=== PATIENT | female | born 1970 | race Caucasian/White ===

== ENCOUNTER 2017-01-15 13:50 | Emergency (ER) | payer OTHER ==
[~2017-01-15 13:50] MED LIST: ACET325T9 PO; IBUP800T19 PO; LEVO25TA55 PO; METF10002 PO; SULF1TAB24 PO
[2017-01-15] MEDS ORDERED: IV NORMAL SALINE 1,000ML 1,000 ML IV SCH (14:28)
[2017-01-15 14:49] LABS: BASO % 0 % (0-3); EOS # 0.1 x10^3/uL (0.0-0.7); EOS % 1 % (0-3); HEMATOCRIT 39.1 % (36.0-47.0); HEMOGLOBIN 13.4 g/dL (12.0-15.5); LYMPH # 1.9 x10^3/uL (1.0-4.8); LYMPH % 24 % (24-48); MEAN CORPUSCULAR HEMOGLOBIN 32 pg (25-35); MEAN CORPUSCULAR HGB CONC 34 g/dL (31-37); MEAN CORPUSCULAR VOLUME 92 fL (79-100); MONO # 0.4 x10^3/uL (0.0-1.1); MONO % 5 % (0-9); NEUT # 5.5 x10^3uL (1.8-7.7); NEUT % 69 % (31-73); PLATELET COUNT 291 x10^3/uL (140-400); RED BLOOD COUNT 4.23 x10^6/uL (3.50-5.40); RED CELL DISTRIBUTION WIDTH 12.4 % (11.5-14.5)
--- NOTE | 2017-01-15 14:59 | EKG ---
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
[2017-01-15 15:30] LABS: CLARITY,URINE CLEAR; COLOR,URINE YELLOW; GLUCOSE,URINE >=1000 mg/dL (NEG)
[2017-01-15 15:31] LABS: BILIRUBIN,URINE NEG (NEG); NITRITE,URINE NEG (NEG); UROBILINOGEN,URINE 0.2 mg/dL (0.2 mg/dL)
[2017-01-15 15:32] LABS: BACTERIA,URINE 0 /HPF (0-FEW); WBC,URINE 0 /HPF (0-4)
[2017-01-15 15:38] LABS: ALBUMIN 3.2 g/dL (3.4-5.0); ALBUMIN/GLOBULIN RATIO 0.8 (1.0-1.7); CALCIUM 8.7 mg/dL (8.5-10.1); CREATININE 0.7 mg/dL (0.6-1.0); GFR 89.7; POTASSIUM 4.1 mmol/L (3.5-5.1); TOTAL BILIRUBIN 0.4 mg/dL (0.2-1.0)
--- NOTE | 2017-01-15 15:44 | PHYS DOC ---
Past History Past Medical History: Diabetes, Hypothyroid, Other Past Surgical History: Alcohol Use: None Drug Use: None Adult General Chief Complaint Chief Complaint: DIZZY/LIGHT HEADED HPI HPI Patient is a 47-year-old female brought to the ED by family member in private vehicle. Patient was at the store when she began to feel dizzy. She felt dizzy and lightheaded. She thought her blood sugar was probably high. Patient has history of diabetes. Her blood sugar has been running "very high". She has had some trouble with reactions to insulin. She had been on metformin, was switched to glipizide, was switched back to metformin. No GI complaints. Patient states "since I got here" she has had some heavy feeling in her chest and also a pain between her shoulder blades. She did not have it earlier, did not have it before she arrived at the ED. She has not had that back pain pain before. She has had heaviness in her chest at times. She has been seen before for atypical chest pain. PCP none. Patient had a PCP who left the practice. Patient states the doctors who are in the practice "she doesn't really get along with". Patient states she has been in the hospital before to control her diabetes, they give her insulin in the hospital but she is afraid to take it at home because it causes "heart palpitations". Patient has a history of HSP and had wounds on her lower legs which ended up causing scars. Review of Systems Review of Systems Constitutional: Denies fever or chills [] Eyes: Denies change in visual acuity, redness, or eye pain [] HENT: Denies nasal congestion or sore throat [] Respiratory: Denies cough or shortness of breath [] Cardiovascular: As in history of present illness GI: Denies abdominal pain, nausea, vomiting, bloody stools or diarrhea [] : Denies dysuria or hematuria [] Musculoskeletal: As in history of present illness Integument: Denies rash or skin lesions [] Neurologic: Denies headache, focal weakness or sensory changes [] Current Medications Current Medications Current Medications Medications (Trade) Dose Ordered Sig/Piotr Start Time Stop Time Status Last Admin Dose Admin Sodium Chloride 1,000 ml @ 1,000 mls/hr Q1H 01/15/17 14:28 01/15/17 15:27 DC 01/15/17 14:15 1,000 MLS/HR Allergies Allergies Allergies Coded Allergies Type Severity Reaction Last Updated Verified banana Allergy Intermediate 02/14/15 Yes influenza virus vacc,specific Allergy Intermediate 02/14/15 Yes I S O L A T I O N *CONTACT* Allergy Unknown 02/14/15 Yes Physical Exam Physical Exam Constitutional: Well developed, well nourished, no acute distress, non-toxic appearance. Alert, mentating normally, nondiaphoretic. HENT: Normocephalic, atraumatic, bilateral external ears normal, nose normal. [] Eyes: conjunctiva normal, no discharge. [] Neck: Normal range of motion, no stridor. [] Cardiovascular:Heart rate regular rhythm, no murmur [] Lungs & Thorax: Bilateral breath sounds clear to auscultation [] Abdomen: Bowel sounds normal, soft, no tenderness, no masses, no pulsatile masses. [] Skin: Warm, dry, no erythema, no rash. Lower leg hyperpigmented areas secondary to old cars, nothing acute Extremities: No tenderness, no cyanosis, no clubbing, ROM intact, no edema. [] Neurologic: Alert and oriented X 3, normal motor function, normal sensory function, no focal deficits noted. [] Current Patient Data Vital Signs Vital Signs Date Time Temp Pulse Resp B/P (MAP) Pulse Ox O2 Delivery O2 Flow Rate FiO2 01/15/17 13:55 98.5 95 16 98 Room Air Lab Results Laboratory Tests Test 01/15/17 14:30 01/15/17 14:45 White Blood Count 8.0 x10^3/uL (4.0-11.0) Red Blood Count 4.23 x10^6/uL (3.50-5.40) Hemoglobin 13.4 g/dL (12.0-15.5) Hematocrit 39.1 % (36.0-47.0) Mean Corpuscular Volume 92 fL (79-100) Mean Corpuscular Hemoglobin 32 pg (25-35) Mean Corpuscular Hemoglobin Concent 34 g/dL (31-37) Red Cell Distribution Width 12.4 % (11.5-14.5) Platelet Count 291 x10^3/uL (140-400) Neutrophils (%) (Auto) 69 % (31-73) Lymphocytes (%) (Auto) 24 % (24-48) Monocytes (%) (Auto) 5 % (0-9) Eosinophils (%) (Auto) 1 % (0-3) Basophils (%) (Auto) 0 % (0-3) Neutrophils # (Auto) 5.5 x10^3uL (1.8-7.7) Lymphocytes # (Auto) 1.9 x10^3/uL (1.0-4.8) Monocytes # (Auto) 0.4 x10^3/uL (0.0-1.1) Eosinophils # (Auto) 0.1 x10^3/uL (0.0-0.7) Basophils # (Auto) 0.0 x10^3/uL (0.0-0.2) Urine Collection Type Void Urine Color Yellow Urine Clarity Clear Urine pH 5.0 Urine Specific [place] <=1.005 Urine Protein Neg (NEG-TRACE) Urine Glucose (UA) >=1000 mg/dL (NEG) Urine Ketones (Stick) 40 mg/dL (NEG) Urine Blood Mod (NEG) Urine Nitrite Neg (NEG) Urine Bilirubin Neg (NEG) Urine Urobilinogen Dipstick 0.2 mg/dL (0.2 mg/dL) Urine Leukocyte Esterase Neg (NEG) Urine RBC 3-5 /HPF (0-2) Urine WBC 0 /HPF (0-4) Urine Squamous Epithelial Cells None /LPF Urine Bacteria 0 /HPF (0-FEW) EKG EKG 12-lead EKG read by me. Sinus rhythm. Heart rate 85. There are no acute ST or T wave changes indicative of ischemia or infarction. No STEMI. 1419 [] Radiology/Procedures Radiology/Procedures [] Course & Med Decision Making Course & Med Decision Making Pertinent Labs and Imaging studies reviewed. (See chart for details) 47-year-old female who has a long history of diabetes who has not been having well controlled blood sugars presents with dizziness, lightheadedness. It's quite possible that she is dehydrated given her elevated blood sugars. After the patient arrived in the ED and was resting on the cart, she did mention some chest heaviness and pain between her shoulder blades in her upper back which was self-limited and she had a normal EKG while having this discomfort. I feel this discomfort is atypical. Patient was given a liter of IV normal saline in the ED. Labs consistent with the patient's history that her diabetes is out of control with glucose over 400 , urinalysis with glucose and very dilute but minimal ketones. Other labs unremarkable with no acidosis. Patient remained stable in the emergency department. I encouraged her to find a primary care doctor to help her manage diabetes. She is taking metformin only 500 mg a day, I encouraged her to increase that as tolerated to 3 times a day with meals. I offered her admission to the hospital for diabetes control but she stated "they can get it under control when I'm in the hospital, but then I go home and I don't take my insulin and it's out of control again". [] Dragon Disclaimer Dragon Disclaimer This chart was dictated in whole or in part using Voice Recognition software in a busy, high-work load, and often noisy Emergency Department environment. It may contain unintended and wholly unrecognized errors or omissions. Departure Departure: Impression: Primary Impression: Diabetes mellitus out of control Additional Impressions: Dehydration Lightheadedness Atypical chest pain Disposition: HOME, SELF-CARE Condition: STABLE Referrals: PCP,NO (PCP) Patient Instructions: Type 2 Diabetes Mellitus, Adult, [id number] Additional Instructions: As we discussed, it's very important to get a primary care physician that you can follow-up with to help manage your diabetes. Go to the website or call the phone number on your insurance card to try to find someone. As we discussed, increase your metformin dosage to 500 mg 3 times a day with meals. You will need other therapy than metformin but we should try to maximize your metformin as well. Problem Qualifiers MARIANNA HOOKS MD Jan 15, 2017 15:44
[2017-01-15 16:22] VITALS: BP 145/80
== END 2017-01-15 16:25 | disposition home or self-care (01) ==
LOC: ER 13:50
DX: E11.65 Type 2 diabetes mellitus with hyperglycemia (principal); E86.0 Dehydration; R07.89 Other chest pain; E03.9 Hypothyroidism, unspecified; Z79.4 Long term (current) use of insulin; Z91.041 Radiographic dye allergy status; Z88.7 Allergy status to serum and vaccine; Z91.018 Allergy to other foods
CPT/HCPCS: 36415; 80053; 81001; 82553; 84484; 85027; 93005; 96360; 99285-25; J7030

== ENCOUNTER 2017-08-16 20:00 | Emergency (ER) | payer OTHER ==
--- NOTE | 2017-08-16 20:27 | PHYS DOC ---
Past History Past Medical History: Diabetes, Hypothyroid, Other Past Surgical History: Alcohol Use: None Drug Use: None Adult General Chief Complaint Chief Complaint: GENERALIZED BODY ACHES HPI HPI Patient is a 47 year old female who presents with complaints of pain similar to previous episodes of fibromyalgia pain. Patient has been taking her by mouth medications but is not able to control the pain. Patient denies any fevers, chills, rashes, falls, vomiting, diarrhea. Patient's fibromyalgia is being managed by primary care provider, patient has not seen a candles pourer or landscape painter Review of Systems Review of Systems Constitutional: Denies fever or chills [] Eyes: Denies change in visual acuity, redness, or eye pain [] HENT: Denies nasal congestion or sore throat [] Respiratory: Denies cough or shortness of breath [] Cardiovascular: No chest pain GI: Denies abdominal pain, nausea, vomiting, bloody stools or diarrhea [] : Denies dysuria or hematuria [] Musculoskeletal: Diffuse pain "everywhere" Integument: Denies new rash or skin lesions [] Neurologic: Denies headache, focal weakness or sensory changes [] All other systems were reviewed and found to be within normal limits, except as documented in this note. Current Medications Current Medications Current Medications Medications (Trade) Dose Ordered Sig/Piotr Start Time Stop Time Status Last Admin Dose Admin Ketorolac Tromethamine (Toradol) 30 mg 1X ONCE 08/16/17 20:30 08/16/17 20:31 Allergies Allergies Allergies Coded Allergies Type Severity Reaction Last Updated Verified banana Allergy Intermediate 02/14/15 Yes influenza virus vacc,specific Allergy Intermediate 02/14/15 Yes I S O L A T I O N *CONTACT* Allergy Unknown 02/14/15 Yes Physical Exam Physical Exam Constitutional: Well developed, well nourished, mild distress, non-toxic appearance. [] HENT: Normocephalic, atraumatic, bilateral external ears normal, oropharynx dry , no oral exudates, nose normal. [] Eyes: EOMI, conjunctiva normal, no discharge. [] Neck: Normal range of motion, no tenderness, supple, no stridor. [] Cardiovascular:Heart rate regular rhythm, no murmur normal perfusion Lungs & Thorax: Bilateral breath sounds clear to auscultation no tachypnea Abdomen: Bowel sounds normal, soft, mild diffuse tenderness, no masses, no pulsatile masses. [] Skin: Warm, dry, no erythema, chronic rash lower extremities. [] Back: Normal range of motion. [] Extremities: No tenderness, no cyanosis, no DVT, ROM intact, no edema. [] Neurologic: Alert and oriented X 3, normal motor function,, no focal deficits noted. [] Psychologic: Affect normal, judgement normal, mood mild he anxious. [] EKG EKG [] Radiology/Procedures Radiology/Procedures [] Course & Med Decision Making Course & Med Decision Making Pertinent Labs and Imaging studies reviewed. (See chart for details) 2144 pt now more relaxed and calm after medications. Pain controlled. I have advised the patient to follow with her primary care doctor in the morning and discuss possible need for referral to candles pourer and or pain inventory control analyst [] Dragon Disclaimer Dragon Disclaimer This electronic medical record was generated, in whole or in part, using a voice recognition dictation system. Departure Departure: Impression: Primary Impression: Fibromyalgia Additional Impressions: Chronic pain Hyperglycemia Dehydration Disposition: 01 HOME, SELF-CARE Condition: IMPROVED Referrals: LAMAR JONES DO (PCP) Please follow-up with your doctor in 1 day for recheck and reevaluation, please discuss with your doctor possible need for referral to rheumatology or pain inventory control analyst Patient Instructions: Chronic Pain Management, Dehydration, Adult, Crlk-no-Eava , Fibromyalgia, Hyperglycemia, [id number] Additional Instructions: you are given 2 tabs tramadol for pain tonight. Please take every 6 hours as needed. Problem Qualifiers Nico LIVINGSTON MD Aug 16, 2017 20:27
[2017-08-16] MEDS ORDERED: KETOROLAC 30 MG/ML VIAL. IV ONE (20:30)
[2017-08-16 20:35] VITALS: BP 157/75
[2017-08-16] MEDS ORDERED: ORPHENADRINE CITRATE 60 MG/2 ML VIAL. IM ONE (20:45)
[2017-08-16 20:47] LABS: BASO # 0.1 x10^3/uL (0.0-0.2); BASO % 1 % (0-3); EOS # 0.1 x10^3/uL (0.0-0.7); EOS % 2 % (0-3); HEMOGLOBIN 14.5 g/dL (12.0-15.5); LYMPH # 2.3 x10^3/uL (1.0-4.8); LYMPH % 28 % (24-48); MEAN CORPUSCULAR HEMOGLOBIN 32 pg (25-35); MEAN CORPUSCULAR HGB CONC 35 g/dL (31-37); MEAN CORPUSCULAR VOLUME 92 fL (79-100); MONO # 0.4 x10^3/uL (0.0-1.1); MONO % 5 % (0-9); NEUT # 5.3 x10^3uL (1.8-7.7); NEUT % 64 % (31-73); PLATELET COUNT 341 x10^3/uL (140-400); RED BLOOD COUNT 4.47 x10^6/uL (3.50-5.40); RED CELL DISTRIBUTION WIDTH 12.7 % (11.5-14.5); WHITE BLOOD COUNT 8.2 x10^3/uL (4.0-11.0)
[2017-08-16 20:58] LABS: AMPHETAMINE/METHAMPHETAMINE NEG (NEG); BARBITURATES NEG (NEG); BENZODIAZEPINES NEG (NEG); CANNABINOIDS NEG (NEG); COCAINE NEG (NEG); METHADONE NEG (NEG); OPIATES NEG (NEG); PHENCYCLIDINE NEG (NEG)
[2017-08-16 21:01] LABS: ALBUMIN 3.5 g/dL (3.4-5.0); CALCIUM 8.7 mg/dL (8.5-10.1); CREATININE 0.6 mg/dL (0.6-1.0); GFR 107.2; TOTAL BILIRUBIN 0.5 mg/dL (0.2-1.0); TOTAL PROTEIN 6.9 g/dL (6.4-8.2)
[2017-08-16] MEDS ORDERED: IV NORMAL SALINE 500ML 500 ML IV ONE (21:15)
[2017-08-16] MEDS ORDERED: traMADol 50 MG TABLET ONE (21:36)
[2017-08-16] MEDS ORDERED: diphenhydrAMINE 50 MG/ML VIAL ONE (21:36)
[2017-08-16] MEDS ORDERED: START PACK - traMADol 1 STARTPACK TABLET PO ONE ×2 (21:44→22:00)
[2017-08-16] MEDS ORDERED: traMADol 50 MG TABLET PO ONE (21:45)
[2017-08-16] MEDS ORDERED: diphenhydrAMINE 50 MG/ML VIAL IVP ONE (21:45)
== END 2017-08-16 22:00 | disposition home or self-care (01) ==
LOC: ER 20:00
DX: M79.7 Fibromyalgia (principal); G89.29 Other chronic pain; E86.0 Dehydration; E11.65 Type 2 diabetes mellitus with hyperglycemia; E03.9 Hypothyroidism, unspecified; Z91.041 Radiographic dye allergy status; Z88.7 Allergy status to serum and vaccine; Z91.018 Allergy to other foods
CPT/HCPCS: 36415; 80053; 80307; 81025; 82550; 85025; 96361; 96372; 96374; 96375; 99284; J1200; J1885; J2360; J7040; G0479

== ENCOUNTER 2017-11-15 02:47 | Observation (INO) | payer OTHER ==
[~2017-11-15] VITALS: Ht 172.7 cm; Wt 75.3 kg
[~2017-11-15 02:47] MED LIST changes: -METF10002 PO; +METF10003 PO
--- NOTE | 2017-11-15 03:06 | PHYS DOC ---
Past History Past Medical History: Diabetes, Fibromyalgia, Hypothyroid Past Surgical History: Alcohol Use: None Drug Use: None Adult General HPI HPI 47-year-old female with a history of high cholesterol and type 2 diabetes with no known cardiac history now presents to the emergency department after awakening with an episode of palpitations and experiencing near syncope with shortness of breath and nausea and vomiting. Patient was at her baseline last night. She awoke just prior to arrival with the aforementioned symptoms. Patient states she does not have a chronic anxiety problem. She did experience a single episode of anxiety previously but she has not felt stressed or anxious lately. She denies any chest pain. No pleuritic pain. Patient is now asymptomatic. She's never had a cardiac evaluation or stress test. Patient has never seen a side laster tack. Review of Systems Review of Systems Constitutional: Denies fever or chills [] Eyes: Denies change in visual acuity, redness, or eye pain [] HENT: Denies nasal congestion or sore throat [] Respiratory: Denies cough or shortness of breath [] Cardiovascular: No additional information not addressed in HPI [] GI: Denies abdominal pain, nausea, vomiting, bloody stools or diarrhea [] : Denies dysuria or hematuria [] Musculoskeletal: Denies back pain or joint pain [] Integument: Denies rash or skin lesions [] Neurologic: Denies headache, focal weakness or sensory changes [] Endocrine: Denies polyuria or polydipsia [] All other systems were reviewed and found to be within normal limits, except as documented in this note. Allergies Allergies Allergies Coded Allergies Type Severity Reaction Last Updated Verified banana Allergy Intermediate 08/16/17 Yes influenza virus vaccine, specific Allergy Intermediate 08/16/17 Yes I S O L A T I O N *CONTACT* Allergy Unknown 08/16/17 Yes Physical Exam Physical Exam Constitutional: Well developed, well nourished, no acute distress, non-toxic appearance. [] HENT: Normocephalic, atraumatic, bilateral external ears normal, oropharynx moist, no oral exudates, nose normal. [] Eyes: PERRLA, EOMI, conjunctiva normal, no discharge. [] Neck: Normal range of motion, no tenderness, supple, no stridor. [] Cardiovascular:Heart rate regular rhythm, no murmur [] Lungs & Thorax: Bilateral breath sounds clear to auscultation [] Abdomen: Bowel sounds normal, soft, no tenderness, no masses, no pulsatile masses. [] Skin: Warm, dry, no erythema, no rash. [] Back: No tenderness, no CVA tenderness. [] Extremities: No tenderness, no cyanosis, no clubbing, ROM intact, no edema. [] Neurologic: Alert and oriented X 3, normal motor function, normal sensory function, no focal deficits noted. [] Psychologic: Affect normal, judgement normal, mood normal. [] EKG EKG EKG with normal sinus rhythm at 103 left axis deviation left anterior hemiblock Q waves and nonspecific ST and T-wave findings. No STEMI interpreted by me[] Radiology/Procedures Radiology/Procedures Chest x-ray no acute disease no infiltrate or effusion interpreted by me[] Course & Med Decision Making Course & Med Decision Making Pertinent Labs and Imaging studies reviewed. (See chart for details) Patient status post episode of near syncope with shortness of breath and palpitations.chest x-ray and laboratory workup unremarkable except for mild hyperglycemia with glucose 286. Insulin dose given. EKG abnormal with Q waves however troponin negative. Given cannot rule out arrhythmia as etiology for this episode, will admit for telemetry monitoring and cardiac workup. This will be discussed with Dr. Bassett hospitalist on-call regarding inpatient admission to a telemetry bed with cardiology consultation [] Dragon Disclaimer Dragon Disclaimer This electronic medical record was generated, in whole or in part, using a voice recognition dictation system. Departure Departure: Impression: Primary Impression: Near syncope Additional Impressions: Palpitations Hyperglycemia Nausea and vomiting Disposition: ADMITTED INPATIENT Admitting Physician: Cheri Bassett Condition: STABLE Referrals: LAMAR JONES DO (PCP) Problem Qualifiers MELLO JOSEPH MD November 15, 2017 03:06
[2017-11-15] MEDS ORDERED: ALPRAZolam 0.25 MG TABLET ONE (03:19)
[2017-11-15] MEDS ORDERED: ASPIRIN 81 MG TAB.CHEW PO ONE (03:45)
[2017-11-15] MEDS ORDERED: ALPRAZolam 0.25 MG TABLET PO ONE (03:45)
[2017-11-15 03:48] LABS: BASO # 0.1 x10^3/uL (0.0-0.2); BASO % 1 % (0-3); EOS # 0.1 x10^3/uL (0.0-0.7); EOS % 1 % (0-3); HEMATOCRIT 39.3 % (36.0-47.0); HEMOGLOBIN 13.7 g/dL (12.0-15.5); LYMPH # 2.1 x10^3/uL (1.0-4.8); LYMPH % 20 % (24-48); MEAN CORPUSCULAR HEMOGLOBIN 31 pg (25-35); MEAN CORPUSCULAR HGB CONC 35 g/dL (31-37); MEAN CORPUSCULAR VOLUME 90 fL (79-100); MONO # 0.4 x10^3/uL (0.0-1.1); MONO % 4 % (0-9); NEUT # 7.7 x10^3uL (1.8-7.7); NEUT % 75 % (31-73); PLATELET COUNT 278 x10^3/uL (140-400); RED BLOOD COUNT 4.38 x10^6/uL (3.50-5.40); RED CELL DISTRIBUTION WIDTH 12.1 % (11.5-14.5); WHITE BLOOD COUNT 10.4 x10^3/uL (4.0-11.0)
[2017-11-15 03:57] LABS: CALCIUM 8.8 mg/dL (8.5-10.1); CREATININE 0.6 mg/dL (0.6-1.0); GFR 107.2; POTASSIUM 3.8 mmol/L (3.5-5.1)
[2017-11-15] MEDS ORDERED: INSULIN REGULAR 100 UNIT/ML 10ML VIAL. ONE (04:22)
[2017-11-15] MEDS ORDERED: INSULIN REGULAR 100 UNIT/ML 3ML VIAL. IV ONE (04:30)
[2017-11-15] MEDS ORDERED: IV NORMAL SALINE 1,000ML 1,000 ML IV SCH (05:00)
[2017-11-15] MEDS ORDERED: ONDANSETRON PF 4 MG/2 ML VIAL. IV PRN (05:00)
[2017-11-15] MEDS ORDERED: LOPERAMIDE 2 MG CAPSULE PO ONE (05:30)
[2017-11-15] MEDS ORDERED: IV NORMAL SALINE 1,000ML 1,000 ML IV ONE (06:15)
--- NOTE | 2017-11-15 06:30 | EKG ---
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
[2017-11-15 06:31] VITALS: BP 113/70
--- NOTE | 2017-11-15 08:04 | RAD ---
Single view of the Chest 11/15/2017 5:05 AM Indication: Chest pain Comparison: Chest radiograph February 14, 2015 Findings: There is no focal consolidation or infiltrate identified. There is no effusion or pneumothorax. The cardiomediastinal silhouette and pulmonary vasculature are within normal limits. No osseous abnormality is identified. Impression: No evidence of acute cardiopulmonary process.
[2017-11-15] MEDS ORDERED: TIZA4TAB PO (09:21)
[2017-11-15] MEDS ORDERED: PREG75CA PO (09:21)
[2017-11-15] MEDS ORDERED: NAPR-514 PO (09:22)
[2017-11-15] MEDS ORDERED: EMPA25TA PO (09:22)
[2017-11-15] MEDS ORDERED: THYR60TA2 PO (09:22)
[2017-11-15] MEDS ORDERED: NAPROXEN 500 MG TABLET PO SCH (10:00)
[2017-11-15] MEDS: THYROID,PORK 60 MG TABLET PO SCH ×2 (10:00→10:25)
[2017-11-15 10:19] VITALS: BP 120/75
[2017-11-15] MEDS: tiZANidine 4 MG TABLET. PO SCH ×2 (10:25→15:52)
[2017-11-15] MEDS: PREGABALIN 75 MG CAPSULE PO SCH ×2 (10:25→15:52)
--- NOTE | 2017-11-15 14:21 | PDOC2 ---
CONSULT The patient has been seen and examined and the full consult has been dictated.~ I have summarized the most important points for review while the note is being transcribed.~ Please see the dictation for complete details. Summary: Patient's with shortness of breath: Etiology is uncertain. Anxiety may be a component. She did have sinus tachycardia on arrival here a tach arrhythmia cannot be excluded Abnormal EKG: This was noted in the past with a normal echo in 2015. We will repeat an echocardiogram as an outpatient. She can be discharged from a cardiovascular perspective Problems: LOTTIE GAMEZ MD November 15, 2017 14:21
[2017-11-15 14:40] VITALS: BP 95/66
--- NOTE | 2017-11-15 18:07 | SSS ---
ADMIT DATE: 11/15/2017 HISTORY OF PRESENT ILLNESS: The patient is a 47-year-old female patient who basically came to the Emergency Room complaining of shortness of breath, anxiety. She also described tachycardia on arrival here, and she was in sinus rhythm; however tachyarrhythmia cannot be excluded. Her EKG was abnormal; however, this was noted in the past with a normal echocardiogram done in 2014. She has 3 sets of cardiac enzymes that were negative and ruled out myocardial infarction, and arrangement was made for her to have an echocardiogram as an outpatient, also an event monitoring as an outpatient. When I examined her, she looked well and was clearly in no apparent respiratory distress. She is mostly complaining of aches and pains as she has fibromyalgia and symptoms worsened during whenever there is change in the atmospheric pressure. PAST MEDICAL HISTORY: Significant for type 2 diabetes, hyperlipidemia, psoriasis, hypercholesterolemia and hypothyroidism. PAST SURGICAL HISTORY: Significant for cardiac catheterization. ALLERGIES: She is allergic to INSULIN, has a delayed reaction to it. FAMILY HISTORY: Unremarkable. SOCIAL HISTORY: She is a nonsmoker. Denied any alcohol. 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 REVIEW OF SYSTEMS: As per history of present illness. PHYSICAL EXAMINATION: GENERAL: When I examined her today, she looked well and was clearly in no apparent respiratory distress, slightly pale. No jaundice, cyanosis or thyromegaly. No jugular distention. No limb edema. VITAL SIGNS: Her heart rate was 98, blood pressure 118/80, temperature was 97.8, respiratory rate was 18 and oxygen saturation was 100% on room air. HEAD, EYES, EARS, NOSE AND THROAT: Showed normocephalic, atraumatic. NECK: Supple. HEART: Showed normal first and second heart sounds with no gallop, rub or murmur. CHEST: Clear to auscultation. No crepitation or rhonchi. ABDOMEN: Distended, soft, nontender. NEUROLOGIC: She is awake, alert, responding appropriately. Cranial nerves intact. EXTREMITIES: She moves extremities without difficulty. She ambulates without assistance or assistive devices. LABORATORY DATA: Showed that her white cell count of 10,400, hemoglobin 14, hematocrit 39, MCV 90 and platelet count 278,000. Her chemistry showed a serum sodium 136, potassium 3.8, chloride 101, bicarbonate 23, anion gap of 12, BUN 16, creatinine 0.6. Estimated GFR was 107 mL per minute. Her glucose was 186, calcium was 8.8. Her 3 sets of cardiac enzymes showed troponin to be less than 0.017. She will be discharged back home to continue on her current medications including Jardiance 25 mg tablet once a day, naproxen 500 mg twice a day, pregabalin for Lyrica 75 mg twice a day, thyroid (pork) 60 mg daily and tizanidine 4 mg 3 times a day. FINAL DISCHARGE DIAGNOSES: Chest pain, myocardial infarction ruled out, palpitation, possible tachy or bradyarrhythmia for which arrangement has been made for her to have an event monitor. Other medical problems include type 2 diabetes, fibromyalgia, hyperlipidemia, normochromic normocytic anemia. TAL PEREZ MD DR: FLAVIO/shivam JOB#: [id number] / [id number]
[2017-11-15] MEDS ORDERED: THYROID,PORK 60 MG TABLET PO SCH (21:00)
--- NOTE | 2017-11-16 00:30 | CONS ---
DATE OF CONSULTATION: 11/15/2017 CARDIOLOGY CONSULTATION REASON FOR CONSULTATION: Palpitations, shortness of breath and lightheadedness. PERSON REQUESTING CONSULT: Dr. Bassett. HISTORY OF PRESENT ILLNESS: This is a 47-year-old lady with longstanding diabetes, and Henoch Schonlein purpura who woke up around 1:30 (she normally wakes up around that time) feeling that her heart was racing associated with shortness of breath. She sat down, but she continues to have shortness of breath and palpitations, and decided to call her daughter to come and pick her up. As she was waiting for her daughter, she felt lightheaded. She denied any syncope. A week prior to this, she may have had palpitations without any shortness of breath. REVIEW OF SYSTEMS: There is no history of chest pain. No history of pedal edema. She does have a history of multiple ulcerations related to HSP. Rest of the 12 organ review of system is negative. PREVIOUS MEDICAL HISTORY: She has had diabetes for around 16 years, type 2, and history of hyperlipidemia. She is not on any medications for her lipids. She has a history of diabetic neuropathy, and fibromyalgia. FAMILY HISTORY: Her grandmother may have had congestive heart failure. Her mother has hypertension. Father from diabetes. There is no family history of premature coronary artery disease. SOCIAL HISTORY: She lives at home with her son. 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 Her son lives with her. She denies any history of smoking (smoked for 6 months at the age of 16), alcohol or drug abuse. MEDICATIONS: Jardiance, ____, Zanaflex, Lyrica, naproxen, Zofran. PHYSICAL EXAMINATION: GENERAL: She is sleepy, with stable vital signs. VITAL SIGNS: Her temperature is 98.5, pulse rate is 87, blood pressure 120/75 and oxygen saturation 96%. HEENT: The jugular venous pressure was not elevated. There are no carotid bruits. Pupils equal and reactive. Extraocular movements are normal. Sclerae clear. Mucous membranes are moist. NECK: Supple. There is no thyromegaly. There is hepatojugular reflux is absent. There are no carotid bruits. HEART: Revealed normal first and second heart sounds without any murmurs, rubs or gallops. LUNGS: Chest is normal to percussion with equal breath sounds bilaterally without any adventitious sounds. ABDOMEN: Soft, without any palpable mass or pulsations. No bruits. EXTREMITIES: Reveal no edema. Distal pulses are well felt. No cyanosis or clubbing. She has evidence of healed ulcers in both legs. NEUROLOGIC: There is no facial asymmetry. There are no motor or sensory deficits. LABORATORY INVESTIGATIONS: An EKG shows left axis deviation and poor R-wave progression. Heart rate is 103. IMPRESSION: 1. Palpitations and shortness of breath: Her EKG over here showed sinus tachycardia. It is possible that she may have had a tachyarrhythmia. I will set her up for an outpatient MCOT for 4 weeks. 2. Abnormal EKG: She has had poor RV progression and left axis deviation in the past, and this is noted in 2014. An echo was done at that time showed normal LV function. We will repeat an echocardiogram. 3. Henoch-Schonlein purpura: Appears to be under controlled. She has had multiple leg ulcers. 4. Type 2 diabetes: Her sugar was high at 286 at 3:24 a.m. Further management per Dr. Bassett. 5. Anxiety disorder: She does have a history of anxiety. 6. Fibromyalgia: Stable. She can be discharged from a cardiovascular perspective with outpatient followup. Her telemetry has not shown any arrhythmias. LOTTIE GAMEZ MD DR: SURI/shivam JOB#: [id number] / [id number] ATL Escalera MD MTDD
[2017-11-16] MEDS ORDERED: NON FORMULARY ITEM (Empagliflozin (Jardiance) 25 MG) PO SCH (09:00)
[2017-11-16 14:57] LABS: THYROID STIM HORMONE (TSH) 8.764 uIU/mL (0.358-3.740)
== END 2017-11-15 16:50 | disposition home or self-care (01) ==
LOC: ER 02:47 → 1 SOUTH 04:20 → INTOOBSV 04:20
PROVIDERS: ADMIT Internal Medicine; ATTEND Internal Medicine
DX: R00.0 Tachycardia, unspecified (principal); R94.31 Abnormal electrocardiogram [ECG] [EKG]; L97.909 Non-pressure chronic ulcer of unspecified part of unspecified lower leg with unspecified severity; E11.65 Type 2 diabetes mellitus with hyperglycemia; F41.9 Anxiety disorder, unspecified; E78.5 Hyperlipidemia, unspecified; M79.7 Fibromyalgia; D64.9 Anemia, unspecified; E03.9 Hypothyroidism, unspecified; E78.00 Pure hypercholesterolemia, unspecified; Z82.49 Family history of ischemic heart disease and other diseases of the circulatory system; Z83.3 Family history of diabetes mellitus
CPT/HCPCS: 36415; 71045; 80048; 80061; 84443; 84484; 85025; 93005; 96360; 99285; G0378; G0379; J7030

== ENCOUNTER 2019-02-16 12:08 | Emergency (ER) | payer BC, OTHER ==
[~2019-02-16] VITALS: Ht 172.7 cm; Wt 83.9 kg
[~2019-02-16 12:08] MED LIST changes: +EMPA25TA PO; -METF10003 PO; +METF10007 PO; +NAPR-514 PO; +PREG75CA PO; +THYR60TA2 PO; +TIZA4TAB2 PO
[2019-02-16] MEDS ORDERED: oxyCODONE/APAP 10/325 1 TAB TABLET PO ONE (12:45)
[2019-02-16] MEDS ORDERED: ORPHENADRINE CITRATE 60 MG/2 ML VIAL. IM ONE (12:45)
[2019-02-16] MEDS ORDERED: KETOROLAC 60 MG/2 ML VIAL. IM ONE (12:45)
[2019-02-16] MEDS ORDERED: HYDR-3165 PO (12:50)
--- NOTE | 2019-02-16 12:50 | PHYS DOC ---
Past History Past Medical History: Anxiety, Diabetes, Fibromyalgia, Hypothyroid, Other Past Surgical History: Alcohol Use: None Drug Use: None Adult General Chief Complaint Chief Complaint: BACK PAIN OR INJURY HPI HPI 49-year-old female presents with low back pain. She states she woke up this morning in severe pain. She states trying to stand up straight exacerbates the pain. She states the pain radiates from her low back down into her hips. She denies any bowel or bladder dysfunction. She denies any saddle paresthesia. She states she has a muscle relaxer and Motrin at home neither one of helped her discomfort. Review of Systems Review of Systems Constitutional: Denies fever or chills [] Eyes: Denies change in visual acuity, redness, or eye pain [] HENT: Denies nasal congestion or sore throat [] Respiratory: Denies cough or shortness of breath [] Cardiovascular: No additional information not addressed in HPI [] GI: Denies abdominal pain, nausea, vomiting, bloody stools or diarrhea [] : Denies dysuria or hematuria [] Musculoskeletal: Per history of present illness[] Integument: Denies rash or skin lesions [] Neurologic: Denies headache, focal weakness or sensory changes [] Endocrine: Denies polyuria or polydipsia [] All other systems were reviewed and found to be within normal limits, except as documented in this note. Allergies Allergies Allergies Coded Allergies Type Severity Reaction Last Updated Verified banana Allergy Intermediate 08/16/17 Yes influenza virus vaccine, specific Allergy Intermediate 08/16/17 Yes I S O L A T I O N *CONTACT* Allergy Unknown 08/16/17 Yes Physical Exam Physical Exam Constitutional: Well developed, well nourished, moderate distress, non-toxic appearance. [] HENT: Normocephalic, atraumatic, bilateral external ears normal, oropharynx moist, no oral exudates, nose normal. [] Eyes: PERRLA, EOMI, conjunctiva normal, no discharge. [] Neck: Normal range of motion, no tenderness, supple, no stridor. [] Cardiovascular:Heart rate regular rhythm, no murmur [] Lungs & Thorax: Bilateral breath sounds clear to auscultation [] Abdomen: Bowel sounds normal, soft, no tenderness, no masses, no pulsatile masses. [] Skin: Warm, dry, no erythema, no rash. [] Back: Lumbar paraspinal muscle spasm no midline vertebral tenderness. [] Extremities: No tenderness, no cyanosis, no clubbing, ROM intact, no edema. [] Neurologic: Alert and oriented X 3, normal motor function, normal sensory function, no focal deficits noted, patellar reflexes intact bilaterally. [] Psychologic: Affect normal, judgement normal, mood normal. [] Current Patient Data Vital Signs Vital Signs Date Time Temp Pulse Resp B/P (MAP) Pulse Ox O2 Delivery O2 Flow Rate FiO2 02/16/19 12:10 98.0 103 24 99 Room Air EKG EKG [] Radiology/Procedures Radiology/Procedures [] Course & Med Decision Making Course & Med Decision Making Pertinent Labs and Imaging studies reviewed. (See chart for details) [] Dragon Disclaimer Dragon Disclaimer This electronic medical record was generated, in whole or in part, using a voice recognition dictation system. Departure Departure: Impression: Primary Impression: Acute lumbar myofascial strain Disposition: 01 HOME, SELF-CARE Condition: STABLE Referrals: LAMAR JONES DO (PCP) Patient Instructions: Back Pain, Adult Additional Instructions: Return to the emergency department with any new or concerning symptoms Scripts Hydrocodone Bit/Acetaminophen (NORCO 5-325 TABLET) 1 Each Tablet 1-2 TAB PO Q4-6HRS for PAIN, #20 TAB Prov: VIKRAM MCKEON DO 02/16/19 Problem Qualifiers Primary Impression: Acute lumbar myofascial strain Encounter type: initial encounter Qualified Codes: S39.012A - Strain of muscle, fascia and tendon of lower back, initial encounter VIKRAM MCKEON DO Feb 16, 2019 12:50
[2019-02-16 13:12] VITALS: BP 120/71
[2019-02-19] MEDS ORDERED: GABA800T5 PO (12:05)
[2019-02-19] MEDS ORDERED: IBUP800T19 PO (12:05)
[2019-02-19] MEDS ORDERED: METO-239 PO (12:05)
[2019-02-19] MEDS ORDERED: GLIM4TAB2 PO (12:05)
[2019-02-19] MEDS ORDERED: TIZA4TAB2 PO (12:55)
== END 2019-02-16 13:15 | disposition home or self-care (01) ==
LOC: ER 12:08
DX: S39.012A Strain of muscle, fascia and tendon of lower back, initial encounter (principal); M79.7 Fibromyalgia; E03.9 Hypothyroidism, unspecified; E11.9 Type 2 diabetes mellitus without complications; Z91.041 Radiographic dye allergy status; Z88.7 Allergy status to serum and vaccine; Z91.018 Allergy to other foods; X58.XXXA Exposure to other specified factors, initial encounter; Y93.89 Activity, other specified; Y92.89 Other specified places as the place of occurrence of the external cause; Y99.8 Other external cause status
CPT/HCPCS: 96372; 99284; J1885; J2360

== ENCOUNTER 2019-10-30 10:55 | Emergency (ER) | payer BC ==
[~2019-10-30] VITALS: Ht 172.7 cm; Wt 92.7 kg
[~2019-10-30 10:55] MED LIST changes: +GABA800T5 PO; +GLIM4TAB8 PO; +HYDR-3165 PO; +METO-239 PO
[2019-10-30] MEDS ORDERED: IV NORMAL SALINE 1,000ML 1,000 ML IV ONE ×2 (11:15→12:30)
[2019-10-30] MEDS ORDERED: AZITHROMYCIN 500 MG VIAL. IV ONE (11:20)
[2019-10-30] MEDS ORDERED: IV NORMAL SALINE 250ML 250 ML ONE (11:20)
--- NOTE | 2019-10-30 11:23 | PHYS DOC ---
Past History Past Medical History: Anxiety, Diabetes, Fibromyalgia, Hypothyroid, Other Past Surgical History: Alcohol Use: None Drug Use: None General Adult EDM: Chief Complaint: SHORTNESS OF BREATH HPI: HPI: 49-year-old female with history of insulin-dependent diabetes mellitus, hyperlipidemia, hypothyroidism, neuropathy, who presents for evaluation of nausea and vomiting for the last 4 days or so. Associated polydipsia but no polyuria. No significant abdominal pain. She also reports a one-day history of nonproductive cough associated with fever as high as 100 at home and SOA. No known contact with a known novel coronavirus individual. No aggravating or alleviating factors. No chest pain. Review of Systems: Review of Systems: General: No fevers, chills. Reports fatigue. Endocrine: Reports polydipsia. Eyes: No blurred vision, diplopia. ENT: No nasal congestion, sore throat. CV: No chest pain, edema. Resp: Reports cough, SOA. GI: No abdominal pain. Reports nausea, vomiting. : No dysuria, hematuria. Neuro: No headache, dizziness, weakness. MSK: No myalgia, arthralgia, back pain. Skin: No acute rash, lesion. Heart Score: HEART Score for Chest Pain: HEART Score for Chest Pain Response (Comments) Value History Slighlty/Non-Suspicious 0 ECG Nonspecific Repolarizatio 1 Age >45 - < 65 1 Risk Factors >3 Risk Factors or Hx CAD 2 Troponin >3 x Normal Limit 2 Total 6 Risk Factors: Risk Factors: DM, Current or recent (<one month) smoker, HTN, HLP, family histo ry of CAD, obesity. Risk Scores: Score 0 - 3: 2.5% MACE over next 6 weeks - Discharge Home Score 4 - 6: 20.3% MACE over next 6 weeks - Admit for Clinical Observation Score 7 - 10: 72.7% MACE over next 6 weeks - Early Invasive Strategies Allergies: Allergies: Allergies Coded Allergies Type Severity Reaction Last Updated Verified banana Allergy Intermediate 08/16/17 Yes influenza virus vaccine, specific Allergy Intermediate 08/16/17 Yes Physical Exam: PE: Gen: NAD. Head: NC/AT Eyes: No scleral icterus. No conjunctival injection. ENT: MMM. Posterior OP clear. Neck: Supple. NT. CV: RRR. Peripheral pulses intact. Resp: Diminished aeration. Mildly tachypneic. Abd: Soft. NT. ND. MSK: No peripheral cyanosis. No edema. Neuro: Awake and alert. Skin: Warm. Dry. Psych: Appropriate mood & affect. EKG: EKG: EKG at 1124. Sinus rhythm. Heart rate 93. Normal intervals. Diffuse nonspecific ST changes most pronounced in the precordial leads. No STEMI. Interpreted by me. Repeat EKG performed at 1416. Sinus rhythm. Heart rate 84. Normal intervals. Occasional PVC. Diffuse nonspecific STT changes most pronounced in the precordial leads. STEMI. Interpreted by me. Radiology/Procedures: Radiology/Procedures: EXAM: CHEST AP ONLY INDICATION: Cough. TECHNIQUE: Single view COMPARISON: 11/15/2017 chest x-ray FINDINGS: The heart size is normal. The great vessels appear unremarkable. There is no hilar or mediastinal mass. Lungs show interval development of interstitial prominence and hazy density at the left greater than right bilateral lung bases. There is no pleural effusion or pneumothorax. There are no significant osseous abnormalities. IMPRESSION: Interval development of interstitial hazy opacities left greater than right are suspicious for atypical pneumonia. Electronically signed by: Rossi Soto MD (10/30/2019 11:46 AM) [id number] CT angiography chest with contrast PQRS statement: CT scans at this facility use dose reduction including either automated exposure control, iterative reconstructions, and /or weight based radiation dosing via mA and kV modification when appropriate to reduce radiation dose to as low as reasonably achievable. HISTORY: Shortness of breath. TECHNIQUE: CT imaging of the chest with 3-D MIP reconstructions of the pulmonary arteries to assess for emboli with 100 mL Isovue-370 intravenous contrast. FINDINGS: Coronary calcified plaque. Mild calcified plaque aortic arch. Heart size upper limits of normal. Mildly central adenopathy most of the lymph nodes are subcentimeter in size there is a dominant right paratracheal 1.3 cm lymph node on image 31. Borderline hilar adenopathy with lymph nodes measuring up to 1 cm in size which are increased in number. Esophagus is unremarkable. No pulmonary artery emboli. Mild bilateral pleural effusions maximum thickness of 2 cm. Mild bilateral dependent lower lobe atelectasis associated with pleural effusions. Bilateral lower lobe greater than upper lobe smooth paraseptal interstitial thickening typical of edema, and basilar lower lobe heterogeneous alveolar opacities. Very mild areas of consolidation of the subpleural basilar lower lobes. Bones are unremarkable. IMPRESSION: 1. No pulmonary artery emboli. 2. Small pleural effusions and lower lobe greater than upper lobe pulmonary interstitial smooth thickening typical of interstitial edema. 3. Basilar lower lobe heterogeneous opacities with some areas of early consolidation, given the presence of interstitial edema and pleural effusions, this likely represents dense pulmonary alveolar edema. An infectious/inflammatory process including multilobar community-acquired pneumonia, or atypical viral pneumonia would also be considerations. 4. Mild mediastinal adenopathy. Electronically signed by: Bhavin Miller MD (10/30/2019 1:55 PM) [id number] Course & Med Decision Making: Course & Med Decision Making Pertinent Labs and Imaging studies reviewed. (See chart for details) In summary, 49-year-old female with diabetes, hyperlipidemia, who presents for evaluation of a 1 day history of URI symptoms and fever, in the setting of a few days of nausea and vomiting. Associated dyspnea without chest pain. EKG without acute injury pattern, but nonspecific STT changes. Chest x-ray with bilateral infiltrates. Lab work shows hyperglycemia, mild hyponatremia with elevated troponin of 6.4. No active chest pain. CTA chest was obtained, negative for PE. There are bilateral infiltrates and interstitial edema, however. The patient presented without a nausea primary, but is now requiring 4 L nasal cannula, with pulse oximetry at 98%. There is some concern for possibility of novel coronavirus infection as well, with no known sick contacts. Given Zithromax for presumed pneumonia, as well as full dose aspirin, cardiovascular heparin bolus and drip protocol. Also received 2 IV fluid boluses for transient hypotension. I spoke with Brenna SMITH of cardiology at [place]. In agreement with current management. Repeat EKG was obtained with no significant interval changes. Call to hospitalist for transfer. Accepted for transfer by Dr. Kwong at 1437. Dragon Disclaimer: Dragon Disclaimer: This electronic medical record was generated, in whole or in part, using a voice recognition dictation system. Departure Departure: Impression: Primary Impression: NSTEMI (non-ST elevated myocardial infarction) Additional Impressions: Pneumonia Hyponatremia Suspected COVID-19 virus infection Disposition: 05 TRANSFER OTHER ([facility] - Accepting physician Dr. Kwong) Condition: GUARDED Referrals: LAMAR JONES DO (PCP) Critical Care Note Total Time (mins): 45 Comments Critical care time for patient evaluation, laboratory and imaging interpretation, demonstration of cardiovascular medications for the management of non-STEMI, cardiology consultation, and facilitation for transfer to higher level of care. TIEN ARREOLA DO Oct 30, 2019 11:23
[2019-10-30] MEDS ORDERED: ONDANSETRON PF 4 MG/2 ML VIAL. ONE (11:28)
[2019-10-30] MEDS ORDERED: AZITHROMYCIN 500 MG in IV NORMAL SALINE 250ML 250 ML IV ONE (11:30)
[2019-10-30 11:43] LABS: BASO % 0 % (0-3); EOS # 0.1 x10^3/uL (0.0-0.7); EOS % 1 % (0-3); HEMOGLOBIN 12.3 g/dL (12.0-15.5); LYMPH # 1.3 x10^3/uL (1.0-4.8); LYMPH % 13 % (24-48); MEAN CORPUSCULAR HEMOGLOBIN 30 pg (25-35); MEAN CORPUSCULAR HGB CONC 33 g/dL (31-37); MEAN CORPUSCULAR VOLUME 92 fL (79-100); MONO # 0.7 x10^3/uL (0.0-1.1); MONO % 7 % (0-9); NEUT # 8.1 x10^3uL (1.8-7.7); NEUT % 80 % (31-73); PLATELET COUNT 273 x10^3/uL (140-400); RED BLOOD COUNT 4.04 x10^6/uL (3.50-5.40); RED CELL DISTRIBUTION WIDTH 12.8 % (11.5-14.5); WHITE BLOOD COUNT 10.2 x10^3/uL (4.0-11.0)
--- NOTE | 2019-10-30 11:49 | RAD ---
EXAM: CHEST AP ONLY INDICATION: Cough. TECHNIQUE: Single view COMPARISON: 11/15/2017 chest x-ray FINDINGS: The heart size is normal. The great vessels appear unremarkable. There is no hilar or mediastinal mass. Lungs show interval development of interstitial prominence and hazy density at the left greater than right bilateral lung bases. There is no pleural effusion or pneumothorax. There are no significant osseous abnormalities. IMPRESSION: Interval development of interstitial hazy opacities left greater than right are suspicious for atypical pneumonia. Electronically signed by: Rossi Soto MD (10/30/2019 11:46 AM) [id number]
[2019-10-30] MEDS ORDERED: METOCLOPRAMIDE HCL 10 MG/2 ML VIAL. ONE (11:52)
[2019-10-30 11:56] LABS: CALCIUM 8.9 mg/dL (8.5-10.1); CREATININE 0.8 mg/dL (0.6-1.0); GFR 76.2; POTASSIUM 4.5 mmol/L (3.5-5.1)
[2019-10-30 12:01] LABS: ALBUMIN 2.7 g/dL (3.4-5.0); ALBUMIN/GLOBULIN RATIO 0.6 (1.0-1.7); MAGNESIUM 1.8 mg/dL (1.8-2.4); TOTAL BILIRUBIN 0.4 mg/dL (0.2-1.0); TOTAL PROTEIN 7.3 g/dL (6.4-8.2)
[2019-10-30] MEDS ORDERED: ONDANSETRON PF 4 MG/2 ML VIAL. IVP ONE (12:30)
[2019-10-30] MEDS ORDERED: METOCLOPRAMIDE HCL 10 MG/2 ML VIAL. IVP ONE (12:30)
[2019-10-30] MEDS ORDERED: IOHEXOL 350 MG/ML 100 ML VIAL. IV ONE (12:45)
[2019-10-30 12:59] VITALS: BP 98/72
--- NOTE | 2019-10-30 13:58 | RAD ---
CT angiography chest with contrast PQRS statement: CT scans at this facility use dose reduction including either automated exposure control, iterative reconstructions, and /or weight based radiation dosing via mA and kV modification when appropriate to reduce radiation dose to as low as reasonably achievable. HISTORY: Shortness of breath. TECHNIQUE: CT imaging of the chest with 3-D MIP reconstructions of the pulmonary arteries to assess for emboli with 100 mL Isovue-370 intravenous contrast. FINDINGS: Coronary calcified plaque. Mild calcified plaque aortic arch. Heart size upper limits of normal. Mildly central adenopathy most of the lymph nodes are subcentimeter in size there is a dominant right paratracheal 1.3 cm lymph node on image 31. Borderline hilar adenopathy with lymph nodes measuring up to 1 cm in size which are increased in number. Esophagus is unremarkable. No pulmonary artery emboli. Mild bilateral pleural effusions maximum thickness of 2 cm. Mild bilateral dependent lower lobe atelectasis associated with pleural effusions. Bilateral lower lobe greater than upper lobe smooth paraseptal interstitial thickening typical of edema, and basilar lower lobe heterogeneous alveolar opacities. Very mild areas of consolidation of the subpleural basilar lower lobes. Bones are unremarkable. IMPRESSION: 1. No pulmonary artery emboli. 2. Small pleural effusions and lower lobe greater than upper lobe pulmonary interstitial smooth thickening typical of interstitial edema. 3. Basilar lower lobe heterogeneous opacities with some areas of early consolidation, given the presence of interstitial edema and pleural effusions, this likely represents dense pulmonary alveolar edema. An infectious/inflammatory process including multilobar community-acquired pneumonia, or atypical viral pneumonia would also be considerations. 4. Mild mediastinal adenopathy. Electronically signed by: Bhavin Miller MD (10/30/2019 1:55 PM) [id number]
[2019-10-30] MEDS ORDERED: HEPARIN 25,000UTS/250ML PREMIX 250 ML IV PRN (14:00)
[2019-10-30] MEDS ORDERED: HEPARIN for IV BOLUS 10,000 UNIT/10 ML VIAL. IV PRN (14:00)
[2019-10-30] MEDS ORDERED: ASPIRIN CHEWABLE 81 MG TABLET. PO ONE (14:00)
[2019-10-30] MEDS ORDERED: HEPARIN for IV BOLUS 10,000 UNIT/10 ML VIAL. IV ONE (14:15)
--- NOTE | 2019-10-30 15:29 | EKG ---
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 Electronically Signed On 11-01-2019 10:02:05 CDT by Jamar Najera
--- NOTE | 2019-10-30 15:30 | EKG ---
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 SMALL INFERIOR Q WAVE. Electronically Signed On 11-01-2019 10:06:52 CDT by Jamar Najera
== END 2019-10-30 15:33 | disposition short-term general hospital (02) ==
LOC: ER 10:55
DX: I21.4 Non-ST elevation (NSTEMI) myocardial infarction (principal); J18.9 Pneumonia, unspecified organism; E87.1 Hypo-osmolality and hyponatremia; Z03.818 Encounter for observation for suspected exposure to other biological agents ruled out; E78.5 Hyperlipidemia, unspecified; E11.9 Type 2 diabetes mellitus without complications; M79.7 Fibromyalgia; R11.2 Nausea with vomiting, unspecified; Z91.018 Allergy to other foods; Z88.7 Allergy status to serum and vaccine
CPT/HCPCS: 36415; 71045; 71275; 80053; 82010; 83605; 83690; 83735; 84484; 85025; 85610; 85730; 87040; 87635; 93005; 96361; 96365; 96375; 96376; 99291; J0456; J1644; J2405; J2765; J7050; Q9967; J7030

== ENCOUNTER → 2019-12-02 | Outpatient (CLI) | payer BC ==
[2019-12-02 12:27] LABS: CALCIUM 8.9 mg/dL (8.5-10.1); CREATININE 0.6 mg/dL (0.6-1.0); GFR 106.3; POTASSIUM 4.4 mmol/L (3.5-5.1)
== END | disposition home or self-care (01) ==
LOC: SPEC 12:09
PROVIDERS: ATTEND Internal Medicine
DX: I21.4 Non-ST elevation (NSTEMI) myocardial infarction (principal); I50.31 Acute diastolic (congestive) heart failure
CPT/HCPCS: 36415; 80048

== ENCOUNTER → 2019-12-10 | Outpatient (CLI) | payer BC ==
[2019-12-10 11:07] LABS: CALCIUM 8.6 mg/dL (8.5-10.1); CREATININE 0.6 mg/dL (0.6-1.0); GFR 106.3; POTASSIUM 4.1 mmol/L (3.5-5.1)
== END ==
LOC: SPEC 10:44
PROVIDERS: ATTEND Internal Medicine
DX: I11.0 Hypertensive heart disease with heart failure (principal); I21.4 Non-ST elevation (NSTEMI) myocardial infarction; I50.9 Heart failure, unspecified
CPT/HCPCS: 36415; 80048

== ENCOUNTER → 2019-12-16 | Outpatient (CLI) | payer BC ==
[2019-12-16 17:02] LABS: CALCIUM 9.1 mg/dL (8.5-10.1); CREATININE 0.9 mg/dL (0.6-1.0); GFR 66.5; POTASSIUM 4.5 mmol/L (3.5-5.1)
== END ==
LOC: SPEC 16:00
PROVIDERS: ATTEND Internal Medicine
DX: I21.4 Non-ST elevation (NSTEMI) myocardial infarction (principal); I50.21 Acute systolic (congestive) heart failure
CPT/HCPCS: 36415; 80048; 85610

== ENCOUNTER → 2019-12-23 | Outpatient (CLI) | payer BC ==
[2019-12-23 11:22] LABS: CALCIUM 8.7 mg/dL (8.5-10.1); GFR 58.9; POTASSIUM 4.7 mmol/L (3.5-5.1)
== END ==
LOC: SPEC 10:42
PROVIDERS: ATTEND Internal Medicine
DX: I21.4 Non-ST elevation (NSTEMI) myocardial infarction (principal); I50.21 Acute systolic (congestive) heart failure
CPT/HCPCS: 36415; 80048; 85610

== ENCOUNTER → 2019-12-30 | Outpatient (CLI) | payer BC ==
[2019-12-30 12:23] LABS: CALCIUM 9.2 mg/dL (8.5-10.1); GFR 58.9; POTASSIUM 4.6 mmol/L (3.5-5.1)
== END ==
LOC: SPEC 11:38
PROVIDERS: ATTEND Internal Medicine
DX: I21.4 Non-ST elevation (NSTEMI) myocardial infarction (principal); I11.0 Hypertensive heart disease with heart failure; I50.9 Heart failure, unspecified
CPT/HCPCS: 36415; 80048; 85610

== ENCOUNTER → 2020-01-06 | Outpatient (CLI) | payer BC ==
[2020-01-06 11:20] LABS: CREATININE 0.8 mg/dL (0.6-1.0); GFR 75.9; POTASSIUM 4.4 mmol/L (3.5-5.1)
== END ==
LOC: SPEC 11:08
PROVIDERS: ATTEND Internal Medicine
DX: I21.4 Non-ST elevation (NSTEMI) myocardial infarction (principal); I25.5 Ischemic cardiomyopathy
CPT/HCPCS: 36415; 80048

== ENCOUNTER → 2020-01-13 | Outpatient (CLI) | payer BC ==
[2020-01-13 12:20] LABS: CALCIUM 8.6 mg/dL (8.5-10.1); CREATININE 0.8 mg/dL (0.6-1.0); GFR 75.9; POTASSIUM 5.2 mmol/L (3.5-5.1)
== END | disposition home or self-care (01) ==
LOC: SPEC 11:59
PROVIDERS: ATTEND Internal Medicine
DX: I11.0 Hypertensive heart disease with heart failure (principal); I50.9 Heart failure, unspecified
CPT/HCPCS: 36415; 80048

== ENCOUNTER → 2020-01-20 | Outpatient (CLI) | payer BC ==
[2020-01-20 15:33] LABS: CREATININE 1.5 mg/dL (0.6-1.0); GFR 36.8; POTASSIUM 4.7 mmol/L (3.5-5.1)
== END ==
LOC: SPEC 14:38
PROVIDERS: ATTEND Internal Medicine
DX: I11.0 Hypertensive heart disease with heart failure (principal); I21.4 Non-ST elevation (NSTEMI) myocardial infarction; I50.9 Heart failure, unspecified
CPT/HCPCS: 36415; 80048

== ENCOUNTER → 2020-02-10 | Outpatient (CLI) | payer BC ==
[2020-02-10 14:17] LABS: CALCIUM 9.1 mg/dL (8.5-10.1); GFR 58.7; POTASSIUM 4.1 mmol/L (3.5-5.1)
== END | disposition home or self-care (01) ==
LOC: SPEC 13:52
PROVIDERS: ATTEND Internal Medicine
DX: I50.21 Acute systolic (congestive) heart failure (principal)
CPT/HCPCS: 36415; 80048

== ENCOUNTER → 2020-02-17 | Outpatient (CLI) | payer BC ==
[2020-02-17 10:34] LABS: BASO % 1 % (0-3); EOS # 0.2 x10^3/uL (0.0-0.7); EOS % 2 % (0-3); HEMATOCRIT 34.7 % (36.0-47.0); HEMOGLOBIN 11.9 g/dL (12.0-15.5); LYMPH # 1.8 x10^3/uL (1.0-4.8); LYMPH % 22 % (24-48); MEAN CORPUSCULAR HEMOGLOBIN 30 pg (25-35); MEAN CORPUSCULAR HGB CONC 34 g/dL (31-37); MEAN CORPUSCULAR VOLUME 88 fL (79-100); MONO # 0.5 x10^3/uL (0.0-1.1); MONO % 6 % (0-9); NEUT # 5.8 x10^3uL (1.8-7.7); NEUT % 70 % (31-73); PLATELET COUNT 271 x10^3/uL (140-400); RED BLOOD COUNT 3.94 x10^6/uL (3.50-5.40); RED CELL DISTRIBUTION WIDTH 12.9 % (11.5-14.5); WHITE BLOOD COUNT 8.3 x10^3/uL (4.0-11.0)
[2020-02-17 10:40] LABS: ALBUMIN 3.9 g/dL (3.4-5.0); ALBUMIN/GLOBULIN RATIO 1.1 (1.0-1.7); CALCIUM 9.1 mg/dL (8.5-10.1); CREATININE 0.9 mg/dL (0.6-1.0); GFR 66.3; POTASSIUM 4.3 mmol/L (3.5-5.1); TOTAL BILIRUBIN 0.6 mg/dL (0.2-1.0); TOTAL PROTEIN 7.4 g/dL (6.4-8.2)
[2020-02-18 04:07] LABS: HEMOGLOBIN A1C 7.2 % (4.8-5.6)
== END | disposition home or self-care (01) ==
LOC: SPEC 10:20
PROVIDERS: ATTEND Internal Medicine
DX: I50.21 Acute systolic (congestive) heart failure (principal); I51.9 Heart disease, unspecified
CPT/HCPCS: 36415; 80053; 83036; 85025

== ENCOUNTER → 2020-02-24 | Outpatient (CLI) | payer BC ==
[2020-02-24 11:46] LABS: CALCIUM 8.8 mg/dL (8.5-10.1); CREATININE 0.8 mg/dL (0.6-1.0); GFR 75.9; POTASSIUM 4.2 mmol/L (3.5-5.1)
== END | disposition home or self-care (01) ==
LOC: SPEC 10:55
PROVIDERS: ATTEND Internal Medicine
DX: I11.0 Hypertensive heart disease with heart failure (principal)
CPT/HCPCS: 36415; 80048

== ENCOUNTER → 2020-03-02 | Outpatient (CLI) | payer BC ==
[2020-03-02 13:05] LABS: CALCIUM 8.8 mg/dL (8.5-10.1); CREATININE 1.1 mg/dL (0.6-1.0); GFR 52.6; POTASSIUM 4.1 mmol/L (3.5-5.1)
== END | disposition home or self-care (01) ==
LOC: SPEC 12:30
PROVIDERS: ATTEND Internal Medicine
DX: I11.0 Hypertensive heart disease with heart failure (principal)
CPT/HCPCS: 36415; 80048

== ENCOUNTER → 2020-03-09 | Outpatient (CLI) | payer BC ==
[2020-03-09 13:07] LABS: CALCIUM 8.7 mg/dL (8.5-10.1); CREATININE 0.9 mg/dL (0.6-1.0); GFR 66.3; POTASSIUM 3.9 mmol/L (3.5-5.1)
== END ==
LOC: SPEC 12:52
PROVIDERS: ATTEND Internal Medicine
DX: I50.21 Acute systolic (congestive) heart failure (principal)
CPT/HCPCS: 36415; 80048

== ENCOUNTER → 2020-04-22 | Outpatient (CLI) | payer MEDICAID ==
[2020-04-22 16:18] LABS: CREATININE 1.3 mg/dL (0.6-1.0); GFR 43.4; POTASSIUM 5.4 mmol/L (3.5-5.1)
== END ==
LOC: LAB 15:02
PROVIDERS: ATTEND Internal Medicine
DX: I51.9 Heart disease, unspecified (principal)
CPT/HCPCS: 36415; 80048; 82728; 83540; 83550

== ENCOUNTER → 2020-06-09 | Outpatient (CLI) | payer MEDICAID ==
[2020-06-09 15:43] LABS: CALCIUM 8.9 mg/dL (8.5-10.1); CREATININE 0.9 mg/dL (0.6-1.0); GFR 66.3; POTASSIUM 4.4 mmol/L (3.5-5.1)
[2020-06-10 04:07] LABS: HEMOGLOBIN A1C 9.5 % (4.8-5.6)
== END ==
LOC: LAB 13:12
PROVIDERS: ATTEND Internal Medicine
DX: I50.21 Acute systolic (congestive) heart failure (principal)
CPT/HCPCS: 36415; 80048; 83036

== ENCOUNTER → 2020-08-20 | Outpatient (CLI) | payer MEDICAID ==
[2020-08-20 14:33] LABS: CREATININE 0.9 mg/dL (0.6-1.0); GFR 66.3; POTASSIUM 4.7 mmol/L (3.5-5.1)
== END ==
LOC: LAB 13:12
PROVIDERS: ATTEND Nurse Practitioner
DX: I50.21 Acute systolic (congestive) heart failure (principal)
CPT/HCPCS: 36415; 80048